=== PATIENT | male | born 1945 | race Caucasian/White ===

== ENCOUNTER 2020-08-06 00:42 | Outpatient (CLI) | payer MEDICARE, SELFPAY ==
--- NOTE | 2020-08-06 | DI.MRI_ITS ---
EXAM: MR BRAIN WO/W CLINICAL HISTORY: LG RT FRONTALPARIETAL BRAIN METS,C79.31,RADIOSURGERY PLANNING TECHNIQUE: Multiplanar multisequence MRI of the brain was performed. Both noninfused and contrast i nfused sequences were performed. IV Contrast injected was 18 cc Dotarem. FINDINGS: CEREBRAL PARENCHYMA: The size of the enhancing lesion in the right parasagittal area exhibits minimal change from the 2020 study. Present measurement are 2.7 cm AP by 3.2 cm wide by 2.6 cm cephalocaudal. The a mount of surrounding vasogenic edema has slightly decreased. There is still mass effect upon the cor pus callosum and subjacent right lateral ventricle. There is presently no shift of midline structure s. Basal cisterns are patent. There are no new posterior fossa findings. No evidence of new hemorr hellen. There are no new additional enhancing lesions in the brain. Also no new abnormal meningeal enhanceme nt, focal or diffuse. No new skull lesions identified. PITUITARY GLAND: No mass nor parasellar abnormality. No obvious abnormality in the cavernous sinuses. FLOW VOIDS: The expected flow void are noted. No evidence of obvious aneurysm nor obvious vascular ma lformation. PARANASAL SINUSES: The visualized paranasal sinuses appear unremarkable. ORBITS: No obvious abnormal findings. IMPRESSION: 1. Compared to the prior MRI scan of July 06, 2020 the size of the previously described right para sagittal frontoparietal lesion has minimally decreased. The amount of surrounding edema has slightly decreased. There is still some mass effect upon the corpus callosum and ventricle but no shift of m idline structures at this time. 2. There are no new additional intracranial lesions evident. DATA REPOSITORY:
[2020-08-06] MEDS: Normal Saline Flush 10 ML SYR IVP (09:36)
[2020-08-06] MEDS: Gadoterate meglumine 20 ML VIAL 10 ML IVP (09:37)
== END 2020-08-06 00:43 ==
PROVIDERS: Visit Provider Radiology Radiation Oncology
DX: C79.31 Secondary malignant neoplasm of brain (principal)
CPT/HCPCS: 70553